=== PATIENT | male | born 1945 | race Caucasian/White ===

== ENCOUNTER 2017-08-22 19:27 | Emergency (ER) | payer MEDICAID, MEDICARE ==
--- NOTE | 2017-08-22 20:28 | RAD ---
Indication: Confusion. Single frontal view of the chest performed at 2010 hours was reviewed. No priors. No mediastinal shift is noted. Heart is of normal size and configuration. Lung bernstein appear clear. IMPRESSION: NO ACTIVE CARDIOPULMONARY DISEASE IS NOTED.
[2017-08-22 21:05] LABS: ABS Basophils 0 10^3/ul (0-0.2); ABS Eosinophils 0.3 10^3/ul (0-0.6); ABS Lymphocytes 1.3 10^3/ul (1.0-4.8); ABS Monocytes 0.4 10^3/ul (0-0.8); ABS Neutrophils 2.5 10^3/ul (1.5-7.7); ABS Nucleated RBC 0 10^3/ul; Hematocrit 37 % (42-52); Lymphocyte % 29.5 % (25-47); Mean Corpuscular HGB Conc 35 g/dl (31-36); Mean Corpuscular Hemoglobin 34 pg (27-31); Mean Corpuscular Volume 95 fL (80-94); Mean Platelet Volume 6.8 um3 (7.4-10.4); Nucleated Red Blood Cells % 0.1; Platelet Count 186 10^3/ul (150-450); Red Blood Count 3.88 10^6/ul (4.0-5.4); Red Cell Distribution Width 13 % (10.5-15); White Blood Count 4.5 10^3/ul (3.5-10.8)
--- NOTE | 2017-08-22 21:15 | RAD ---
Indication: Confusion. CT of the brain was performed without IV contrast. Motion artifact degrades the images. Ventricular structures are midline. No midline shift is noted. The extra-axial spaces are unremarkable. There is no evidence of intracranial mass or hemorrhage. No other high or low density lesions are identified. Mastoid air cells and paranasal sinuses are otherwise unremarkable. IMPRESSION: There is no intracranial mass or hemorrhage.
[2017-08-22 21:22] LABS: EGFR Non-African American 58.9 (>60)
--- NOTE | 2017-08-22 21:56 | ED ---
Armando Weldon Angela, scribed for Gurdeep Morrison MD on 08/22/17 at 1956 . Altered Mental Status - HPI Summary HPI Summary: This pt is a 72 y/o male presenting to [facility] via EMS from [facility] for altered mental status. EMS reports the pt was noticed to be altered at approximately 17:00 today. EMS states that per staff pt was standing on a table and pushing it while making grunting sounds. EMS was unable to report what pt's baseline is. Per nurse pt has psychiatric history. HPI IS LIMITED DUE TO LEVEL 5 CAVEAT - pt with AMS. - History Of Current Complaint Stated Complaint: AMS Hx Obtained From: EMS Hx From Patient Unobtainable Due To: Altered Mental Status Onset/Duration: Suddenly Severity Currently: Severe Character: Confusion Aggravating Factor(s): Unknown Alleviating Factor(s): Unknown Associated Signs And Symptoms: Negative: Fever - Allergies/Home Medications Allergies/Adverse Reactions: Allergies Allergy/AdvReac Type Severity Reaction Status Date / Time adhesive tape Allergy Unknown Verified 08/22/17 19:40 Reaction Details Cephalosporins Allergy Unknown Verified 08/22/17 19:39 Reaction Details clozapine Allergy Unknown Verified 08/22/17 19:39 Reaction Details Home Medications: Home Medications Aspirin EC TAB* [Ecotrin EC Low Dose 81 MG*] 81 mg PO DAILY 08/22/17 [History Confirmed 08/22/17] Benztropine TAB* [Cogentin TAB*] 0.5 mg PO BID 08/22/17 [History Confirmed 08/22] Divalproex Sprinkle CAP* [Depakote Sprinkle CAP*] 500 mg PO Q12H 08/22/17 [ History Confirmed 08/22/17] Docusate CAP* [Colace Cap*] 100 mg PO DAILY 08/22/17 [History Confirmed 08/22/17 ] Folic Acid TAB* [Folvite TAB*] 1 mg PO DAILY 08/22/17 [History Confirmed ] Furosemide TAB* [Lasix TAB*] 20 mg PO DAILY 08/22/17 [History Confirmed 08/22/17 ] Lactulose* 15 ml PO BID 08/22/17 [History Confirmed 08/22/17] Midodrine (NF) 5 mg PO TID 08/22/17 [History Confirmed 08/22/17] OLANzapine TAB* [Zyprexa 5 MG TAB*] 5 mg PO BID 08/22/17 [History Confirmed 09/03] PMH/Surg Hx/FS Hx/Imm Hx Previously Healthy: No - level 5 caveat - pt has AMS Endocrine/Hematology History: Reports: Hx Anemia Cardiovascular History: Reports: Hx Deep Vein Thrombosis Respiratory History: Reports: Hx Chronic Obstructive Pulmonary Disease (COPD) History: Reports: Hx Chronic Renal Failure Neurological History: Reports: Other Neuro Impairments/Disorders - Parkinson's disease Psychiatric History: Reports: Hx Depression, Hx Bipolar Disorder, Other Psychiatric Issues/Disorders - Schizoaffective disorder, psychosis Infectious Disease History: No Infectious Disease History: Denies: Traveled Outside the [place] in Last 30 Days - Family History Known Family History: Positive: Unknown - due to level 5 caveat - pt has AMS - Social History Lives: Assisted Living - [facility] Alcohol Use: unknown - level 5 caveat - AMS Smoking Status (MU): Unknown if Ever Smoked - due to level 5 caveat - pt has AMS Review of Systems - ROS Summary Review of Systems Summary: ROS IS LIMITED DUE TO LEVEL 5 CAVEAT - pt has AMS Negative: Fever Neurological: Other - POS: Altered mental status All Other Systems Reviewed And Are Negative: No Physical Exam - Summary Physical Exam Summary: Appearance: The patient is well-nourished in no acute distress and in no acute pain. Skin: The skin is warm and skin color reflects adequate perfusion. Pt is a little diaphoretic. HEENT: The head is normocephalic and atraumatic. The pupils are equal and reactive. The conjunctivae are clear and without drainage. Nares are patent and without drainage. Mouth reveals moist mucous membranes and the throat is without erythema and exudate. The external ears are intact. The ear canals are patent and without drainage. The tympanic membranes are intact. Neck: the neck is supple with full range of motion and non-tender. There are no carotid bruits. There is no neck vein distension. Respiratory: Chest is non-tender. Pt is phonating and lung sounds are hard to hear. Cardiovascular: Heart is regular rate and rhythm. There is no murmur or rub auscultated. Pitting edema bilaterally. Abdomen: The abdomen is soft and non-tender. There are normal bowel sounds heard in all four quadrants and there is no organomegaly palpated. Musculoskeletal: There is no back tenderness noted. Extremities are non-tender with full range of motion. There is good capillary refill. Pitting edema bilaterally. There is a tracking device on LLE. Neurological: Patient is alert and oriented to person, place and time. The patient has symmetrical motor strength in all four extremities. Cranial nerves are grossly intact. Deep tendon reflexes are symmetrical and equal in all four extremities. Psychiatric: The patient has an appropriate affect and does not exhibit any anxiety or depression. Triage Information Reviewed: Yes Vital Signs On Initial Exam: Initial Vitals Temp Pulse Resp BP Pulse Ox 98.9 F 67 22 123/67 98 08/22/17 19:40 08/22/17 19:40 08/22/17 19:40 08/22/17 19:40 08/22/17 19:40 Vital Signs Reviewed: Yes Completion Of Physical Exam Limited Due To: Level 5 - pt has AMS Diagnostics - Vital Signs Vital Signs Temp Pulse Resp BP Pulse Ox 08/22/17 19:40 98.9 F 67 22 123/67 98 - Laboratory Lab Results: Lab Results 08/22/17 08/22/17 08/22/17 Range/Units 20:56 20:56 20:56 WBC 4.5 (3.5-10.8) 10^3/ul RBC 3.88 L (4.0-5.4) 10^6/ul Hgb 13.0 L (14.0-18.0) g/dl Hct 37 L (42-52) % MCV 95 H (80-94) fL MCH 34 H (27-31) pg MCHC 35 (31-36) g/dl RDW 13 (10.5-15) % Plt Count 186 (150-450) 10^3/ul MPV 6.8 L (7.4-10.4) um3 Neut % (Auto) 55.1 (38-83) % Lymph % (Auto) 29.5 (25-47) % Grand % (Auto) 8.1 H (0-7) % Eos % (Auto) 7.0 H (0-6) % Baso % (Auto) 0.3 (0-2) % Absolute Neuts (auto) 2.5 (1.5-7.7) 10^3/ul Absolute Lymphs (auto) 1.3 (1.0-4.8) 10^3/ul Absolute Monos (auto) 0.4 (0-0.8) 10^3/ul Absolute Eos (auto) 0.3 (0-0.6) 10^3/ul Absolute Basos (auto) 0 (0-0.2) 10^3/ul Absolute Nucleated RBC 0 10^3/ul Nucleated RBC % 0.1 INR (Anticoag Therapy) 1.00 (0.77-1.02) Sodium 134 L (139-145) mmol/L Potassium 3.8 (3.5-5.0) mmol/L Chloride 100 L (101-111) mmol/L Carbon Dioxide 26 (22-32) mmol/L Anion Gap 8 (2-11) mmol/L BUN 17 (6-24) mg/dL Creatinine 1.21 H (0.67-1.17) mg/dL Est GFR ( Amer) 75.8 (>60) Est GFR (Non-Af Amer) 58.9 (>60) BUN/Creatinine Ratio 14.0 (8-20) Glucose 169 H (70-100) mg/dL Lactic Acid (0.5-2.0) mmol/L Calcium 8.8 (8.6-10.3) mg/dL Total Bilirubin 0.50 (0.2-1.0) mg/dL AST 13 (13-39) U/L ALT 12 (7-52) U/L Alkaline Phosphatase 55 (34-104) U/L Troponin I 0.00 (<0.04) ng/mL Total Protein 6.2 L (6.4-8.9) g/dL Albumin 3.2 (3.2-5.2) g/dL Globulin 3.0 (2-4) g/dL Albumin/Globulin Ratio 1.1 (1-3) /09/03 Range/Units 20:56 WBC (3.5-10.8) 10^3/ul RBC (4.0-5.4) 10^6/ul Hgb (14.0-18.0) g/dl Hct (42-52) % MCV (80-94) fL MCH (27-31) pg MCHC (31-36) g/dl RDW (10.5-15) % Plt Count (150-450) 10^3/ul MPV (7.4-10.4) um3 Neut % (Auto) (38-83) % Lymph % (Auto) (25-47) % Grand % (Auto) (0-7) % Eos % (Auto) (0-6) % Baso % (Auto) (0-2) % Absolute Neuts (auto) (1.5-7.7) 10^3/ul Absolute Lymphs (auto) (1.0-4.8) 10^3/ul Absolute Monos (auto) (0-0.8) 10^3/ul Absolute Eos (auto) (0-0.6) 10^3/ul Absolute Basos (auto) (0-0.2) 10^3/ul Absolute Nucleated RBC 10^3/ul Nucleated RBC % INR (Anticoag Therapy) (0.77-1.02) Sodium (139-145) mmol/L Potassium (3.5-5.0) mmol/L Chloride (101-111) mmol/L Carbon Dioxide (22-32) mmol/L Anion Gap (2-11) mmol/L BUN (6-24) mg/dL Creatinine (0.67-1.17) mg/dL Est GFR ( Amer) (>60) Est GFR (Non-Af Amer) (>60) BUN/Creatinine Ratio (8-20) Glucose (70-100) mg/dL Lactic Acid 1.4 (0.5-2.0) mmol/L Calcium (8.6-10.3) mg/dL Total Bilirubin (0.2-1.0) mg/dL AST (13-39) U/L ALT (7-52) U/L Alkaline Phosphatase (34-104) U/L Troponin I (<0.04) ng/mL Total Protein (6.4-8.9) g/dL Albumin (3.2-5.2) g/dL Globulin (2-4) g/dL Albumin/Globulin Ratio (1-3) Result Diagrams: 08/22/17 20:56 08/22/17 20:56 Lab Statement: Any lab studies that have been ordered have been reviewed, and results considered in the medical decision making process. - Radiology Chest XR Xray Interpretation: No Acute Changes - IMPRESSION: No active cardiopulmonary disease is noted. Dr. Morrison has reviewed this radiology report. Radiology Interpretation Completed By: Radiologist - CT Brain CT CT Interpretation: No Acute Changes - IMPRESSION: There is no intracranial mass or hemorrhage. Dr. Morrison has reviewed this radiology report. CT Interpretation Completed By: Radiologist - EKG 20:53 Cardiac Rate: Bradycardia - at 57 bpm EKG Rhythm: Sinus Bradycardia Altered Mental Statu Course/Dx - Course Course Of Treatment: Mr. Chacon suffers from dementia and lives at [facility]. He was standing in pushing a table and grunting and was transferred to the emergency department for altered mental status. It is unclear what his baseline status is a side from dementia. He also has a history of psychosis. His vitals are stable and he did not look toxic on arrival. I could not obtain any history that was viable from the patient. His urinalysis is still pending at this time the rest of his workup including CT scan is negative. [facility] and recommending follow-up with his PCP. - Diagnoses Provider Diagnoses: Behavioral change Discharge - Sign-Out/Discharge Documenting (check all that apply): Discharge/Admit/Transfer - Discharge Plan Condition: Stable Disposition: HOME Referrals: No Primary Care Phys,NOPCP [Primary Care Provider] - - Billing Disposition and Condition Condition: STABLE Disposition: Home The documentation as recorded by the Armando carreon Angela accurately reflects the service I personally performed and the decisions made by me, Gurdeep Morrison MD.
[2017-08-22 22:04] LABS: Urine Appearance Clear; Urine Blood Negative (Negative); Urine Color Yellow; Urine Ketones Negative (Negative); Urine Protein Negative (Negative); Urine Specific Gravity 1.011 (1.010-1.030); Urine Urobilinogen Negative (Negative)
[2017-08-23 01:46] VITALS: BP 118/61
--- NOTE | 2017-08-23 01:59 | ED ---
Tanner Weldon Jade, scribed for Amairani Olivas MD on 08/23/17 at 0147 . Progress - Progress Note Progress Note: Pt was signed out by Dr. Morrison, pending dispo, awaiting UA. Course/Dx - Course Course Of Treatment: Pt was signed out by Dr. Morrison, pending dispo, awaiting UA results. UA is negative and pt will [facility]C back to [facility] with Dx of dementia. - Diagnoses Provider Diagnoses: Dementia Discharge - Sign-Out/Discharge Documenting (check all that apply): Discharge/Admit/Transfer - Discharge, Receiving Sign-Out Receiving patient FROM: Gurdeep Morrison - Discharge Plan Condition: Stable Disposition: HOME Patient Education Materials: Dementia (ED) Referrals: [facility] PHYSICIAN REFERRAL [Outside] Additional Instructions: Please follow up with your primary care provider in 2-3 days. RETURN TO THE ED FOR ANY WORSENING SYMPTOMS. The documentation as recorded by the Tanner carreon Jade accurately reflects the service I personally performed and the decisions made by Brendon diane Abdul, MD.
== END 2017-08-23 02:47 | disposition home or self-care (01) ==
LOC: ED 19:27
DX: F02.80 Dementia in other diseases classified elsewhere, unspecified severity, without behavioral disturbance, psychotic disturbance, mood disturbance, and anxiety (principal); R00.1 Bradycardia, unspecified; D64.9 Anemia, unspecified; Z86.718 Personal history of other venous thrombosis and embolism; J44.9 Chronic obstructive pulmonary disease, unspecified; N18.9 Chronic kidney disease, unspecified; G20 Parkinson's disease; F31.9 Bipolar disorder, unspecified; F20.9 Schizophrenia, unspecified; Z88.1 Allergy status to other antibiotic agents; Z88.8 Allergy status to other drugs, medicaments and biological substances; Z91.048 Other nonmedicinal substance allergy status
CPT/HCPCS: 36415; 70450; 71045; 80053; 81003; 83605; 84484; 85025; 85610; 93005; 99284

== ENCOUNTER 2018-08-21 19:29 | Emergency (ER) | payer MEDICARE, MEDICAID ==
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
[2018-08-22 00:53] VITALS: BP 131/70
[2018-08-22] MEDS ORDERED: Divalproex Sprinkle CAP* 125 MG PO ONE (01:59)
[2018-08-22] MEDS ORDERED: Benztropine TAB* 1 MG PO ONE (02:00)
[2018-08-22] MEDS ORDERED: risperiDONE TAB* 1 MG PO SCH (02:05)
[2018-08-22] MEDS ORDERED: OLANzapine TAB* 5 MG PO SCH (02:05)
== END 2018-08-22 11:48 | disposition home or self-care (01) ==
LOC: ED 19:29
DX: S09.90XA Unspecified injury of head, initial encounter (principal); W17.89XA Other fall from one level to another, initial encounter; Y93.89 Activity, other specified; Y92.129 Unspecified place in nursing home as the place of occurrence of the external cause; J44.9 Chronic obstructive pulmonary disease, unspecified; I50.9 Heart failure, unspecified; N18.9 Chronic kidney disease, unspecified; Z88.3 Allergy status to other anti-infective agents; Z88.8 Allergy status to other drugs, medicaments and biological substances; Z79.899 Other long term (current) drug therapy; Z86.718 Personal history of other venous thrombosis and embolism; G20 Parkinson's disease; F31.9 Bipolar disorder, unspecified
CPT/HCPCS: 70450; 99283; A9270-GY

== ENCOUNTER 2021-06-30 02:02 | Inpatient (IN) ==
[2021-06-30] MEDS ORDERED: Furosemide 40 mg/4 ml IV VIAL IV SLOW PU ONE (02:20)
[2021-06-30] MEDS ORDERED: nitroGLYCERIN DRIP 25,000 MCG/250 ML BTL IV ONE ×2 (02:20→02:43)
[2021-06-30 02:35] LABS: PCO2 Arterial 39 mmHg (35-45); PO2 Arterial 61 mmHg (80-100)
[2021-06-30 02:35] LABS: Hematocrit 46 % (42-52); Hemoglobin 15.6 g/dL (14.0-18.0); Mean Corpuscular HGB Conc 34 g/dL (31-36); Mean Corpuscular Hemoglobin 32 pg (27-31); Mean Corpuscular Volume 95 fL (80-94); Mean Platelet Volume 7.7 fL (7.4-10.4); Platelet Count 388 10^3/uL (150-450); Red Blood Count 4.84 10^6 /uL (4.18-5.48); Red Cell Distribution Width 14 % (10-15); White Blood Count 5.3 10^3/uL (3.5-10.8)
[2021-06-30 02:45] LABS: Albumin 3.1 g/dL (3.2-5.2); Albumin/Globulin Ratio 0.8 (1-3); Calcium 9.2 mg/dL (8.6-10.3); Globulin 3.7 g/dL (2-4); Potassium 3.7 mmol/L (3.5-5.0); Total Bilirubin 0.9 mg/dL (0.2-1.0); Total Protein 6.8 g/dL (6.4-8.9); eGFR CKD-EPI 50.4 (>60)
[2021-06-30 02:52] LABS: ABS Lymphocytes 1.3 10^3/ul (1.0-4.8); ABS Monocytes 0.1 10^3/ul (0-0.8); ABS Neutrophils 3.8 10^3/ul (1.5-7.7); Eosinophil % 0.4 %; Lymphocyte % 25.3 %; Nucleated Red Blood Cells % 0.2
[2021-06-30 03:27] LABS: Urine Appearance Clear; Urine Bilirubin Negative (Negative); Urine Blood Negative (Negative); Urine Color Amber; Urine Glucose Negative (Negative); Urine Ketones Negative (Negative); Urine Nitrite Negative (Negative); Urine Protein 1+(30 mg/dL) (Negative); Urine Specific Gravity 1.024 (1.002-1.030); Urine Urobilinogen Positive (Negative)
[2021-06-30] MEDS ORDERED: Morphine 4 MG/ML VIAL (1 ml) IV ONE (03:28)
[2021-06-30 03:34] LABS: Urine Bacteria Absent (Absent); Urine Red Blood Cell Trace(0-2/hpf) (Absent); Urine White Blood Cell Trace(0-5/hpf) (Absent)
[2021-06-30 03:45] LABS: High Sensitivity Troponin 1 Hr 45 pg/mL (<20)
[2021-06-30] MEDS ORDERED: cefTRIAXone 1 gm/50 mL D5W 1 GM/50 ML BAG IV ONE (04:58)
[2021-06-30] MEDS ORDERED: Piperacillin/Tazobac ADVAN 3.375 GM in NS 0.9% 100 ml BAG 100 ML IV ONE (05:49)
[2021-06-30] MEDS ORDERED: Vancomycin 1,000 MG in NS 0.9% 250 ml 250 ML IVPB ONE (05:49)
[2021-06-30] MEDS ORDERED: Vancomycin per Pharmacy 1 EA NOTE FOLLOW UP SCH (06:00)
[2021-06-30] MEDS ORDERED: Zosyn per Pharmacy NOTE FOLLOW UP SCH (06:00)
[2021-06-30 06:36] LABS: Magnesium 2.2 mg/dL (1.9-2.7); Phosphorus 5.1 mg/dL (2.5-5.0)
[2021-06-30] MEDS ORDERED: Senna TAB 8.6 mg TAB PO PRN (06:41)
[2021-06-30 06:52] LABS: TSH Ultra Thyroid Stim Horm 2.69 mcIU/mL (0.34-5.60)
[2021-06-30 07:01] LABS: INR 1.32 (0.86-1.15)
[2021-06-30] MEDS: Heparin 5000 UNITS/ML 1 mL VIAL SUBCUT SCH ×2 (08:48→21:24)
[2021-06-30] MEDS: Pantoprazole VIAL 40 MG VIAL IV SCH (08:48)
[2021-06-30] MEDS: ZOSYN 3.375 GM Q8H per EXTENDED INFUSION IV SCH ×2 (11:01→18:03)
[2021-06-30] MEDS: Mometasone/Formoter 200/5 MDI INH SCH ×2 (11:34→19:43)
[2021-06-30] MEDS ORDERED: Vancomycin 750 MG in NS 0.9% 250 ML IVPB SCH (18:30)
[2021-07-01 03:51] LABS: Hematocrit 42 % (42-52); Hemoglobin 14.4 g/dL (14.0-18.0); Mean Corpuscular HGB Conc 34 g/dL (31-36); Mean Corpuscular Hemoglobin 32 pg (27-31); Mean Corpuscular Volume 94 fL (80-94); Mean Platelet Volume 7.2 fL (7.4-10.4); Platelet Count 276 10^3/uL (150-450); Red Blood Count 4.45 10^6 /uL (4.18-5.48); Red Cell Distribution Width 15 % (10-15); White Blood Count 19.4 10^3/uL (3.5-10.8)
[2021-07-01 04:15] LABS: Calcium 8.7 mg/dL (8.6-10.3); Potassium 3.5 mmol/L (3.5-5.0); eGFR CKD-EPI 43.7 (>60)
[2021-07-01] MEDS ORDERED: KCL 20 MEQ/100 ML IVPREMIX 20 MEQ/100 ML BAG IV ONE (04:28)
[2021-07-01] MEDS: ZOSYN 3.375 GM Q8H per EXTENDED INFUSION IV SCH ×2 (04:30→09:01)
[2021-07-01] MEDS ORDERED: D5W 500 ml BAG 500 ML IV SCH (07:00)
[2021-07-01] MEDS ORDERED: D5W 1000 ml BAG 1,000 ML IV SCH (07:00)
[2021-07-01 07:10] LABS: Anisocytosis 1+
[2021-07-01 07:12] LABS: Toxic Granulation 2+
[2021-07-01 07:13] LABS: ABS Lymphocytes 0.6 10^3/ul (1.0-4.8); ABS Monocytes 0.3 10^3/ul (0-0.8); ABS Neutrophils 18.5 10^3/ul (1.5-7.7); Nucleated Red Blood Cells % 0.1
[2021-07-01] MEDS: Pantoprazole VIAL 40 MG VIAL IV SCH (09:01)
[2021-07-01] MEDS: Heparin 5000 UNITS/ML 1 mL VIAL SUBCUT SCH (09:02)
[2021-07-01] MEDS: Acetaminophen IV 1 GM/100ML 100 ML IV PRN (09:08)
[2021-07-01] MEDS: Mometasone/Formoter 200/5 MDI INH SCH (09:14)
[2021-07-01] MEDS ORDERED: Albuterol/Ipratropium NEB.SOL (2.5/0.5 MG) 3 ML NEB.SOLN INH PRN (11:44)
[2021-07-01 12:09] VITALS: BP 93/58
[2021-07-01] MEDS: Morphine 2 MG/ML SYRINGE IV PRN ×3 (13:22→21:56)
[2021-07-01] MEDS ORDERED: Lorazepam PYXIS KEY PRN (14:21)
[2021-07-01] MEDS ORDERED: LORazepam 2 mg VIAL 1 ml IV PUSH PRN (14:21)
[2021-07-02] MEDS: Morphine 2 MG/ML SYRINGE IV PRN ×2 (03:37→07:51)
[2021-07-02] MEDS: Acetaminophen IV 1 GM/100ML 100 ML IV PRN (04:02)
[2021-07-02] MEDS ORDERED: Vancomycin Trough Check NOTE FOLLOW UP ONE (06:00)
[2021-07-02] MEDS ORDERED: Morphine 2 MG/ML SYRINGE IV ONE (08:12)
[2021-07-02] MEDS ORDERED: Morphine 2 MG/ML SYRINGE IV PRN ×2 (08:12→10:09)
[2021-07-02] MEDS: Atropine 1% (ORAL/SL) 15 ML BTL SL PRN ×2 (09:32→11:52)
== END 2021-07-02 15:50 | disposition expired | DRG 871 ==
LOC: ED 02:02 → EDHOLD 05:48 → SUATTDRO 05:48 → EDHOLD 07:08 → ICU 07:50 → MED 07-01 12:00
PROVIDERS: ADMIT Hospitalist; ATTEND Hospitalist